=== PATIENT | female | born 1985 | race American Indian/Alaskan Native ===

== ENCOUNTER 2020-01-28 19:05 | Emergency (ER) | payer OTHER ==
[2020-01-28 20:04] LABS: Bilirubin,Urine NEG (Negative); Blood,Urine SM (Negative); Color,Urine Yellow (Yellow); Mucus,Urine 1+ /HPF; Protein,Urine <15 mg/dL mg/dL (Negative); Urobilinogen,Urine < 2.0 mg/dL (<2.0)
[2020-01-28 20:18] LABS: Basophils # (Auto) 0.1 K/mm3 (0.0-0.1); Basophils % (Auto) 0.8 % (0.0-1.8); Eosinophils # (Auto) 0.1 K/mm3 (0.0-0.4); Eosinophils % (Auto) 1.6 % (0.0-4.3); Hemoglobin 11.1 gm/dl (10.1-14.3); Lymphocytes # (Auto) 2.7 K/mm3 (1.2-5.4); Lymphocytes % (Auto) 32.5 % (13.4-35.0); Mean Corpuscular HGB Conc 34 % (30-34); Mean Corpuscular Volume 79 fl (79-97); Monocytes # (Auto) 0.6 K/mm3 (0.0-0.8); Monocytes % (Auto) 6.8 % (0.0-7.3); Platelet Count 346 K/mm3 (140-440); Red Blood Count 4.18 M/mm3 (3.65-5.03); Red Cell Distribution Width 16.5 % (13.2-15.2)
--- NOTE | 2020-01-28 21:39 | Emergency Department Report ---
ED Female HPI - General Chief complaint: Vaginal Bleeding Stated complaint: ABDOMINAL PAIN/VAG BLEED Time Seen by Provider: 01/28/20 21:34 Source: patient Mode of arrival: Ambulatory Limitations: No Limitations - History of Present Illness Initial comments: 34-year-old Irish female presents emerge department complaining of a few day history of cramping and spotting that has recently begun. States she had appeared normal. 2 weeks ago is unsure of the issue with this breakthrough menses. She reports no fever, chills, sweats does have a vague vaginal discharge but no suspicion of an STD and is worried that she may have been . She denies any abdomen abdominal trauma. Radiation: suprapubic Severity: mild, moderate Quality: cramping Improves with: none Worsens with: none Are you Now?: No Associated Symptoms: vaginal bleeding. denies: nausea/vomiting, fever/chills, headaches, loss of appetite, dysuria, hematuria, shortness of breath, syncope - Related Data Allergies Allergy/AdvReac Type Severity Reaction Status Date / Time No Known Allergies Allergy Unverified 01/28/20 19:46 ED Review of Systems ROS: Stated complaint: ABDOMINAL PAIN/VAG BLEED Other details as noted in HPI Comment: All other systems reviewed and negative ED Past Medical Hx - Past Medical History Previous Medical History?: No - Surgical History Past Surgical History?: No - Social History Smoking Status: Current Every Day Smoker Substance Use Type: None ED Physical Exam - General Limitations: No Limitations General appearance: alert, in no apparent distress - Head Head exam: Present: atraumatic, normocephalic - Eye Eye exam: Present: normal appearance, PERRL Pupils: Present: normal accommodation - ENT ENT exam: Present: mucous membranes moist - Neck Neck exam: Present: normal inspection - Respiratory Respiratory exam: Present: normal lung sounds bilaterally. Absent: respiratory distress - Cardiovascular Cardiovascular Exam: Present: regular rate, normal rhythm. Absent: systolic murmur, diastolic murmur, rubs, gallop - GI/Abdominal GI/Abdominal exam: Present: soft, tenderness (Suprapubic tenderness to the left adnexal region with palpation.), normal bowel sounds. Absent: rebound - Extremities Exam Extremities exam: Present: normal inspection, normal capillary refill - Back Exam Back exam: Present: normal inspection. Absent: CVA tenderness (R), CVA tenderness (L) - Neurological Exam Neurological exam: Present: alert, oriented X3, CN II-XII intact, normal gait - Psychiatric Psychiatric exam: Present: normal affect, normal mood - Skin Skin exam: Present: warm, dry, intact, normal color. Absent: rash ED Course Vital Signs 01/28/20 01/28/20 19:38 19:40 Temperature 98.3 F 98.3 F Pulse Rate 77 77 Respiratory 16 16 Rate Blood Pressure 156/92 Blood Pressure 156/92 [Right] O2 Sat by Pulse 100 100 Oximetry ED Medical Decision Making - Lab Data Result diagrams: 01/28/20 20:00 - Radiology Data Radiology results: report reviewed Referring Physician:CONSTANCE DEMPSEYPatient Name:ADRIANA ASENCIOPatient ID:[id number] of :[id number]:FemaleAccession:[id number] Date:[id number] Status:[place] [address] Ultrasound Report Signed Patient: ADRIANA ASENCIO MR#: [id number] : 1985 Acct:[id number] Age/Sex: 34 / F ADM Date: 01/28/20 Loc: ED Attending Dr: Ordering Physician: YAHAIRA OH Date of Service: 01/28/20 Procedure(s): US transvaginal Accession Number(s): [id number] cc: YAHAIRA OH Ultrasound of the pelvis with transvaginal views INDICATION: Pelvic pain with vaginal bleeding FINDINGS: The uterus measures 9 x 5 x 5 cm. Endometrial thickness is normal at 7 mm. The right ovary is normal. The left ovary contains a 3.6 cm complex cyst within the left ovary. There is a small to moderate amount of free fluid is noted. IMPRESSION: Mildly complex 3.6 cm cyst arising from the left ovary. Small to moderate free pelvic fluid, as above. Signer Name: Checo Mike MD Signed: 01/28/2020 10:49 PM Workstation Name: [id number] Transcribed By: BC Dictated By: Checo Mike MD Electronically Authenticated By: Checo Mike MD Signed Date/Time: 01/28/202248 DD/ 42 TD/TT: - Medical Decision Making Female presents emergency department with over 2 to 3 days days of episodic vaginal spotting most likely of a nonemergent etiology. Based on the history, examination, the ED work-up patient's presentation not consistent with an ectopic , molar , life threatening coagulopathy, serious bacterial infection, central process or other emergency. Patient's bleeding is most likely secondary to, fibroids, or the nonemergent cause of abnormal uterine bleeding. No vaginal tears were appreciated on examination Disposition: We will discharge home with return precautions and instructions for prompt NETWORK OPERATIONS MANAGER follow-up Critical care attestation.: If time is entered above; I have spent that time in minutes in the direct care of this critically ill patient, excluding procedure time. ED Disposition Clinical Impression: Ovarian cyst Disposition: DC- TO HOME OR SELFCARE Is pt being admited?: No Does the pt Need Aspirin: No Condition: Stable Instructions: Ovarian Cyst (ED) Additional Instructions: test was negative please follow-up with your NETWORK OPERATIONS MANAGER for any further testing concerned about your spotting and no pathological or concerning factors were discovered at this visit. Referrals: FAIZA LEWIS MD [Primary Care Provider] - 3-5 Days [facility] [Provider Group] - 3-5 Days [facility] [Outside] - 3-5 Days (You can follow-up here for STD testing if unable to get in with your NETWORK OPERATIONS MANAGER or primary care doctor)
--- NOTE | 2020-01-28 22:54 | Ultrasound Report ---
Ultrasound of the pelvis with transvaginal views INDICATION: Pelvic pain with vaginal bleeding FINDINGS: The uterus measures 9 x 5 x 5 cm. Endometrial thickness is normal at 7 mm. The right ovary is normal. The left ovary contains a 3.6 cm complex cyst within the left ovary. There is a small to m oderate amount of free fluid is noted. IMPRESSION: Mildly complex 3.6 cm cyst arising from the left ovary. Small to moderate free pelvic flu id, as above. Signer Name: Checo Mike MD Signed: 01/28/2020 10:49 PM Workstation Name: [id number]
[2020-01-29 01:25] VITALS: BP 142/88
== END 2020-01-29 00:30 | disposition home or self-care (01) ==
LOC: ED 19:05
DX: N83.292 Other ovarian cyst, left side (principal); F17.200 Nicotine dependence, unspecified, uncomplicated
CPT/HCPCS: 36415; 76830; 76856; 81001; 84702; 85025; 86900; 86901